=== PATIENT | female | born 1995 | race Caucasian/White ===

== ENCOUNTER 2017-12-19 01:41 | Emergency (ER) | payer BC ==
[2017-12-19 01:47] VITALS: BP 133/86
[2017-12-19] MEDS ORDERED: Ketorolac INJ* 60 MG/2 ML VIAL IM ONE (02:00)
--- NOTE | 2017-12-19 02:10 | ED ---
Lower Extremity - HPI Summary HPI Summary: 22 year old female presents with right knee pain today. She states that she has tried to lift someone up and felt a pop in her knee. she states she felt something shift in her knee. She states that this has never happened before. She has a history of shoulder dislocations. she denies any previous fracture to the knee. she may have potential connective tissue disorder. She has been treated for patellofemoral syndrome before. She has not taking anything for pain. Pain is a 10 out of 10. She has not been able to ambulate since. No numbness or tingling. - History of Current Complaint Chief Complaint: EDExtremityLower Stated Complaint: RT KNEE INJURY Time Seen by Provider: 12/19/17 01:55 Pain Intensity: 7 - Allergies/Home Medications Allergies/Adverse Reactions: Allergies Allergy/AdvReac Type Severity Reaction Status Date / Time No Known Allergies Allergy Verified 12/19/17 01:47 Home Medications: Home Medications NK [No Home Medications Reported] 12/19/17 [History Confirmed 12/19/17] PMH/Surg Hx/FS Hx/Imm Hx Endocrine/Hematology History: Denies: Hx Anticoagulant Therapy Respiratory History: Denies: Hx Asthma Infectious Disease History: No Infectious Disease History: Denies: Traveled Outside the [place] in Last 30 Days - Family History Known Family History: Negative: Diabetes - Social History Alcohol Use: Rare Substance Use Type: Reports: None Smoking Status (MU): Never Smoked Tobacco Review of Systems Negative: Fever Negative: Chest Pain Negative: Shortness Of Breath Positive: Myalgia - right knee pain All Other Systems Reviewed And Are Negative: Yes Physical Exam Triage Information Reviewed: Yes Vital Signs On Initial Exam: Initial Vitals Temp Pulse Resp BP Pulse Ox 98.7 F 84 16 133/86 99 12/19/17 01:45 12/19/17 01:45 12/19/17 01:45 12/19/17 01:45 12/19/17 01:45 Vital Signs Reviewed: Yes Appearance: Positive: Well-Appearing Skin: Positive: Warm, Dry Head/Face: Positive: Normal Head/Face Inspection Eyes: Positive: Normal, Conjunctiva Clear ENT: Positive: Pharynx normal Respiratory/Lung Sounds: Positive: Clear to Auscultation, Breath Sounds Present Cardiovascular: Positive: Normal, RRR Musculoskeletal: Positive: Other - tenderness right knee, good pulses, sensation grossly intact Neurological: Positive: Normal Psychiatric: Positive: Normal Diagnostics - Vital Signs Vital Signs Temp Pulse Resp BP Pulse Ox 12/19/17 01:45 98.7 F 84 16 133/86 99 - Laboratory Lab Statement: Any lab studies that have been ordered have been reviewed, and results considered in the medical decision making process. - Radiology knee Xray Interpretation: No Acute Changes Radiology Interpretation Completed By: ED Physician Lower Extremity Course/Dx - Course Course Of Treatment: 22 year old female presents with right knee pain today. She states that she has tried to lift someone up and felt a pop in her knee. she states she felt something shift in her knee. She states that this has never happened before. She has a history of shoulder dislocations. she denies any previous fracture to the knee. she may have potential connective tissue disorder. She has been treated for patellofemoral syndrome before. She has not taking anything for pain. Pain is a 10 out of 10. She has not been able to ambulate since. No numbness or tingling. on exam tenderness right knee. neurovascular intact. with story believe that likely dislocated patella and relocated it herself my straigthening her knee. placed in knee immbolizer. will have follow up with ortho. patient understand and agrees with plan. - Diagnoses Differential Diagnosis/HQI/PQRI: Positive: Fracture (Closed), Sprain, Strain Provider Diagnoses: Right knee pain Discharge - Sign-Out/Discharge Documenting (check all that apply): Patient Departure - Discharge Plan Condition: Good Disposition: HOME Patient Education Materials: Knee Pain (ED) Referrals: Tasia Chapa MD [Medical Doctor] - Additional Instructions: Use immobilizer Stay off knee as much as possible Ice, elevate, Ibuprofen or Tylenol every 6 hours for pain Follow up with ortho Return to ED if develop or any new or worsening symptoms - Billing Disposition and Condition Condition: GOOD Disposition: Home
--- NOTE | 2017-12-19 10:32 | RAD ---
INDICATION: Right knee pain after lifting COMPARISON: None TECHNIQUE: 4 view radiograph of the right knee. FINDINGS: The visualized bones are well-corticated and properly aligned. The joint spaces are properly maintained. There is no radiographic evidence of joint effusion. There is no acute fracture, dislocation or other focal bony abnormality. IMPRESSION: Normal knee radiograph as described above. If the patient's symptoms persist, follow-up imaging is recommended.
== END 2017-12-19 02:58 | disposition home or self-care (01) ==
LOC: ED 01:41
DX: M25.561 Pain in right knee (principal); X50.0XXA Overexertion from strenuous movement or load, initial encounter; Y92.9 Unspecified place or not applicable
CPT/HCPCS: 96372; 99282; J1885

== ENCOUNTER 2019-03-06 13:41 | Emergency (ER) | payer BC ==
[2019-03-06 13:46] VITALS: BP 143/87
== END 2019-03-06 13:49 | disposition left against medical advice (07) ==
LOC: ED 13:41
DX: Z53.21 Procedure and treatment not carried out due to patient leaving prior to being seen by health care provider (principal); K92.0 Hematemesis
CPT/HCPCS: 99281